=== PATIENT | male | born 1975 | race Caucasian/White ===

== ENCOUNTER 2020-02-07 15:28 | Emergency (ER) | payer OTHER ==
--- NOTE | 2020-02-07 16:09 | TELE ---
HPI Do you have fever,cough or shortness of breath?: No - General Reason For Visit: COVID History Source: Patient Exam Limitations: No Limitations - History of Present Illness 02/07/20 16:06 44-year-old male evaluated via telemedicine telephone call. Patient's provided information to me. reports patient has no medical history. Patient and requesting COVID testing given their 13-year-old daughter was exposed to a known positive COVID patient, Department of Health contacted patient today regarding this information. 13-year-old daughter is awaiting results. Denies any symptoms such as cough, fever, chills, abdominal pain, chest pain, shortness of breath or any other symptoms. ROS: as above - Medical Decision Making 02/07/20 16:08 requesting covid testing Discharge Diagnosis at time of Disposition: Suspected COVID-19 virus infection - Referrals - Patient Instructions Discharge Instructions: [facility]-Coronavirus Instructions - Discharge Disposition: HOME Condition at time of Disposition: Stable
== END 2020-02-07 16:09 | disposition home or self-care (01) ==
LOC: JVIRT 15:28
DX: Z03.818 Encounter for observation for suspected exposure to other biological agents ruled out (principal)
CPT/HCPCS: 99441-95; C9803; U0003